=== PATIENT | female | born 1995 | race Caucasian/White ===

== ENCOUNTER 2018-12-06 17:26 | Outpatient (CLI) | payer OTHER ==
[~2018-12-06] VITALS: Ht 152.4 cm; Wt 59.5 kg
[~2018-12-06 17:26] MED LIST: FERR256T PO; FOLI0.4T2 PO; PRENAT PO
[2018-12-06 18:25] VITALS: Ht 152.4 cm; Wt 59.5 kg
[2018-12-06 18:56] VITALS: BP 117/64; PULSE 80; RESP 19
== END 2018-12-06 21:25 | disposition home or self-care (01) ==
LOC: OBT 17:26 → L-D 17:27 → OBT 21:25
PROVIDERS: ATTEND Specialist
DX: O36.5930 Maternal care for other known or suspected poor fetal growth, third trimester, not applicable or unspecified (principal); Z3A.35 35 weeks gestation of pregnancy
CPT/HCPCS: 76815; 76818; Z7500; G0463

== ENCOUNTER 2018-12-08 12:03 | Outpatient (CLI) | payer OTHER ==
[~2018-12-08] VITALS: Ht 152.4 cm; Wt 58.9 kg
[2018-12-08 14:19] VITALS: BP 102/60; PULSE 60
== END 2018-12-08 16:13 | disposition home or self-care (01) ==
LOC: OBT 12:03 → L-D 12:03 → OBT 16:13
PROVIDERS: ATTEND Specialist
DX: O47.1 False labor at or after 37 completed weeks of gestation (principal); Z3A.36 36 weeks gestation of pregnancy
CPT/HCPCS: 76818; G0463

== ENCOUNTER 2018-12-09 17:58 | Outpatient (CLI) | payer OTHER ==
[~2018-12-09] VITALS: Ht 152.4 cm; Wt 59.4 kg
[2018-12-09 19:53] VITALS: BP 118/78; PULSE 62; RESP 18
[2018-12-09] MEDS ORDERED: TERBUTALINE 1 MG/ML INJ SC STA (21:12)
[2018-12-09] MEDS ORDERED: LACTATED RINGER'S 1,000 ML IV SCH (21:12)
[2018-12-09] MEDS ORDERED: TERBUTALINE 1 ML ONE (21:21)
[2018-12-09] MEDS ORDERED: LACTATED RINGER'S 1,000 ML IV ONE (21:30)
[2018-12-09] MEDS ORDERED: TERBUTALINE 1 MG/ML INJ SC ONE (23:30)
[2018-12-09] MEDS ORDERED: BETAMET NA PHOS/AC(6 MG/ML) 2 ML INJ SYG IM ONE (23:30)
== END 2018-12-10 00:41 | disposition home or self-care (01) ==
LOC: OBT 17:58 → L-D 18:00 → OBT 12-10 00:41
PROVIDERS: ATTEND Specialist
DX: O36.8130 Decreased fetal movements, third trimester, not applicable or unspecified (principal); O26.893 Other specified pregnancy related conditions, third trimester; R10.9 Unspecified abdominal pain; Z3A.36 36 weeks gestation of pregnancy
CPT/HCPCS: 76818; 81001; 85025; 87086; 96360; 96361; 96372; G0463; J0702; J3105; J7120

== ENCOUNTER 2018-12-10 20:44 | Outpatient (CLI) | payer OTHER ==
[2018-12-10 21:23] VITALS: BP 107/56; PULSE 64; RESP 17
[2018-12-10] MEDS ORDERED: BETAMET NA PHOS/AC(6 MG/ML) 2 ML INJ SYG IM ONE (21:30)
== END 2018-12-10 22:06 | disposition home or self-care (01) ==
LOC: OBT 20:44 → L-D 20:45 → OBT 22:06
PROVIDERS: ATTEND Specialist
DX: O62.9 Abnormality of forces of labor, unspecified (principal); Z3A.36 36 weeks gestation of pregnancy
CPT/HCPCS: 76818; J0702; Z7500; G0463

== ENCOUNTER 2018-12-19 20:50 | Inpatient (IN) | payer OTHER ==
[~2018-12-19] VITALS: Ht 152.4 cm; Wt 61.0 kg
[~2018-12-19 20:50] MED LIST changes: -FERR256T PO
[2018-12-19 20:55] VITALS: BP 112/65; PULSE 89; RESP 17; Ht 152.4 cm; Wt 61.0 kg
[2018-12-19] MEDS ORDERED: OXYCODONE/ASPIRIN (4.88/325) TAB PO PRN (22:30)
[2018-12-19] MEDS ORDERED: MISOPROSTOL 200 MCG TAB PR PRN (22:30)
[2018-12-19] MEDS ORDERED: FENTAnyl 50 MCG/ML VIAL IV PRN (22:30)
[2018-12-19] MEDS ORDERED: OXYTOCIN 30 UNITS/LR 500 ML IV SCH ×2 (22:30)
[2018-12-19] MEDS ORDERED: IBUPROFEN 600 MG TAB PO PRN (22:30)
[2018-12-19] MEDS ORDERED: OXYTOCIN 30 UNITS/LR 500 ML IV PRN (22:30)
[2018-12-19] MEDS ORDERED: LIDOCAINE 1% (MPF) 30 ML INJ INJ PRN (22:30)
[2018-12-19] MEDS ORDERED: BUTORPHANOL 2 MG INJ IV PRN (22:30)
[2018-12-19] MEDS ORDERED: METHYLERGONOVINE 0.2 MG INJ IM PRN (22:30)
[2018-12-19] MEDS ORDERED: CARBOPROST 250 MCG INJ IM PRN (22:30)
[2018-12-19] MEDS: LACTATED RINGER'S 1,000 ML IV SCH (23:04)
[2018-12-19] MEDS ORDERED: LACTATED RINGER'S 1,000 ML IV PRN (23:23)
[2018-12-20] MEDS ORDERED: NALOXONE (0.4 MG/ML) INJ IV PRN
[2018-12-20] MEDS: LACTATED RINGER'S 1,000 ML IV SCH ×3 (00:04→15:47)
[2018-12-20] MEDS ORDERED: FENTAnyl 2MCG/ML-ROPIV 0.2% 100 ML ONE (00:10)
[2018-12-20] MEDS: FENTAnyl 2MCG/ML-ROPIV 0.2% 100 ML BAG EPI SCH ×2 (10:42→14:49)
[2018-12-20] MEDS ORDERED: OXYTOCIN 30 UNITS/LR 500 ML IV SCH (11:00)
[2018-12-20] MEDS ORDERED: MINERAL OIL LIGHT 10 ML VIAL TOP ONE (11:00)
[2018-12-20] MEDS ORDERED: HYDROCODONE/APAP (5/325) TAB PO PRN ×2 (19:00)
[2018-12-20] MEDS ORDERED: OXYTOCIN 30 UNITS/LR 500 ML IV PRN (19:00)
[2018-12-20] MEDS ORDERED: ONDANSETRON 4 MG INJ IV PRN ×2 (19:00)
[2018-12-20] MEDS ORDERED: ONDANSETRON 4 MG TAB PO PRN (19:00)
[2018-12-20] MEDS ORDERED: SENNA/DOCUSATE NA (8.6MG/50MG) TAB PO PRN (19:00)
[2018-12-20] MEDS ORDERED: CARBOPROST 250 MCG INJ IM PRN (19:00)
[2018-12-20] MEDS ORDERED: MISOPROSTOL 200 MCG TAB PR PRN (19:00)
[2018-12-20] MEDS ORDERED: NA PHOSPHATE/BIPHOS 133 ML ENEMA PR PRN (19:00)
[2018-12-20] MEDS ORDERED: LANOLIN HPA 1 PKT TOP PRN (19:00)
[2018-12-20] MEDS ORDERED: WITCH HAZEL/GLYCERIN PAD PR PRN (19:00)
[2018-12-20] MEDS ORDERED: BENZOCAINE 20% 56 ML SPRAY TOP PRN (19:00)
[2018-12-20] MEDS ORDERED: DIPHENHYDRAMINE 25 MG CAP PO PRN (19:00)
[2018-12-20] MEDS ORDERED: DIBUCAINE 1% 30 GM OINT TOP PRN (19:00)
[2018-12-20] MEDS ORDERED: DIPHENHYDRAMINE 50 MG INJ IV PRN ×2 (19:00)
[2018-12-20] MEDS ORDERED: MAGNESIUM HYDROXIDE 30ML CUP PO PRN (19:00)
[2018-12-20] MEDS: SENNA/DOCUSATE NA (8.6MG/50MG) TAB PO SCH (21:00)
[2018-12-20 21:20] VITALS: BP 115/72; PULSE 65; RESP 18
[2018-12-21] VITALS: BP 112/65; PULSE 78; RESP 18
[2018-12-21] MEDS: IBUPROFEN 600 MG TAB PO SCH ×4 (00:09→17:34)
[2018-12-21] MEDS: LACTATED RINGER'S 1,000 ML IV* SCH ×3 (02:59→18:59)
[2018-12-21 03:58] VITALS: BP 109/56; PULSE 51; RESP 18
[2018-12-21] MEDS: LACTATED RINGER'S 1,000 ML IV SCH ×3 (06:01→22:01)
[2018-12-21] MEDS: SENNA/DOCUSATE NA (8.6MG/50MG) TAB PO SCH ×2 (09:28→21:01)
[2018-12-21 16:50] VITALS: BP 116/59; PULSE 60; RESP 18
[2018-12-21 20:00] VITALS: BP 107/65; PULSE 74; RESP 18
[2018-12-22] MEDS: IBUPROFEN 600 MG TAB PO SCH ×3 (00:24→11:26)
[2018-12-22 04:00] VITALS: BP 108/63; PULSE 55; RESP 18
[2018-12-22] MEDS ORDERED: DIPHTH/TET/ACEL PERTUSS (ADULT) 0.5 ML VIAL IM* ONE (09:00)
[2018-12-22] MEDS ORDERED: VARICELLA VACCINE LIVE/PF 1,350 UNIT/0.5 ML ML SC* ONE (09:00)
[2018-12-22] MEDS ORDERED: MEASLES,MUMPS,RUBELLA VACCINE INJ SC* ONE (09:00)
[2018-12-22 09:15] VITALS: BP 107/67; PULSE 57; RESP 18
[2018-12-22] MEDS: SENNA/DOCUSATE NA (8.6MG/50MG) TAB PO SCH (09:23)
== END 2018-12-22 13:55 | disposition home or self-care (01) | DRG 807 ==
LOC: OBT 20:50 → L-D 20:51 → OBT 21:50 → PP1 12-20 21:22
PROVIDERS: ADMIT Specialist; ATTEND Specialist
PROC: 10E0XZZ Delivery of Products of Conception, External Approach (ICD-10-PCS; principal; 2018-12-20)
PROC: 0HQ9XZZ Repair Perineum Skin, External Approach (ICD-10-PCS; 2018-12-20)
PROC: 3E033VJ Introduction of Other Hormone into Peripheral Vein, Percutaneous Approach (ICD-10-PCS; 2018-12-20)
DX: O70.0 First degree perineal laceration during delivery (principal); Z37.0 Single live birth; Z3A.38 38 weeks gestation of pregnancy
CPT/HCPCS: 76815; 76818; 80053; 81003; 85025; 85610; 85730; 86592; 86850; 86900; 86901; 87340; 90715; 90716; G0463; J2590; J3010; J7120